=== PATIENT | female | born 2000 | race Caucasian/White ===

== ENCOUNTER 2020-03-22 03:05 | Emergency (ER) | payer SELFPAY ==
[2020-03-22 03:12] VITALS: BP 133/73
[2020-03-22] MEDS ORDERED: IBUPROFEN 600 MG TABLET PO ONE (04:32)
[2020-03-22 05:14] LABS: APPEARANCE,URINE SLIGHTLY-CLOUDY; BILIRUBIN,URINE NEGATIVE (NEGATIVE); COLOR,URINE AMBER; GLUCOSE, URINE NEGATIVE (NEGATIVE); KETONES,URINE NEGATIVE (NEGATIVE); LEUKOCYTE ESTERASE,URINE LARGE (NEGATIVE); NITRITE,URINE NEGATIVE (NEGATIVE); PROTEIN,URINE 100 mg/dL (NEGATIVE); URINE SPECIFIC GRAVITY 1.013
[2020-03-22] MEDS ORDERED: NORMAL SALINE 1000 ML 1,000 ML IV ONE (06:27)
--- NOTE | 2020-03-22 07:56 | ER Document Report ---
Entered by SHIELA CASTILLO SCRIBE 03/22/20 0626 Acting as scribe for:MIRIAN SORENSON MD ED GI/ - General Chief Complaint: Flank Pain Stated Complaint: URINARY PAIN Time Seen by Provider: 03/22/20 06:07 Mode of Arrival: Ambulatory Information source: Patient Notes: This 19 year old female patient with no significant past medical history presents to the ED today with complaints of bilateral flank pain, right worse than left that started x2 days ago. Patient states that she initially had UTI symptoms including urinary frequency x1 week ago and that she took OTC urinary pain relief tablets. She reports associated nausea without emesis, abdominal pain, and chills. Denies history of kidney stones. Denies fever, sore throat, headache, cough, , or COVID concerns. Last menstrual period was on 02/29/2020. Patient states that she is pain-free at this time after receiving 600 mg Motrin PO prior to my evaluation. Past Medical History - General Information source: Patient - Social History Smoking Status: Never Smoker Cigarette use (# per day): No Chew tobacco use (# tins/day): No Smoking Education Provided: No Frequency of alcohol use: Social Drug Abuse: None Lives with: Friend Family History: Reviewed & Not Pertinent Patient has suicidal ideation: No Patient has homicidal ideation: No Review of Systems - Review of Systems Constitutional: See HPI, Chills. denies: Fever EENT: See HPI. denies: Throat pain Cardiovascular: No symptoms reported Respiratory: See HPI. denies: Cough Gastrointestinal: See HPI, Abdominal pain, Nausea. denies: Diarrhea, Vomiting Genitourinary: See HPI, Frequency, Flank pain Female Genitourinary: See HPI, Last menstrual period - 02/29/2020. denies: Musculoskeletal: No symptoms reported Skin: No symptoms reported Hematologic/Lymphatic: No symptoms reported Neurological/Psychological: See HPI. denies: Headaches -: Yes All other systems reviewed and negative Physical Exam - Vital signs Vitals: Temp Pulse Resp BP Pulse Ox 97.7 F 98 16 133/73 H 100 03/22/20 03:10 03/22/20 03:10 03/22/20 03:10 03/22/20 03:10 03/22/20 03:10 Interpretation: Normal - General General appearance: Appears well, Alert In distress: None - HEENT Head: Normocephalic, Atraumatic Eyes: Normal Pupils: PERRL - Respiratory Respiratory status: No respiratory distress Chest status: Nontender Breath sounds: Normal Chest palpation: Normal - Cardiovascular Rhythm: Regular Heart sounds: Normal auscultation, S1 appreciated, S2 appreciated Murmur: No Friction rub: No Gallop: None auscultated - Abdominal Inspection: Normal Distension: No distension Bowel sounds: Normal Tenderness: Nontender - Abdomen soft Organomegaly: No organomegaly - Back Back: CVA tenderness - Bilateral CVA tenderness to percussion, right worse than left - Extremities General upper extremity: Normal inspection General lower extremity: Normal inspection. No: Edema - Neurological Neuro grossly intact: Yes Orientation: AAOx4 [place] Coma Scale Eye Opening: Spontaneous [place] Coma Scale Verbal: Oriented [place] Coma Scale Motor: Obeys Commands Ja Coma Scale Total: 15 - Psychological Associated symptoms: Normal affect, Normal mood - Skin Skin Temperature: Warm Skin Moisture: Dry Skin Color: Normal Course - Re-evaluation Re-evalutation: 03/22/20 07:54 Patient eloped - Vital Signs Vital signs: Temp Pulse Resp BP Pulse Ox 97.7 F 98 16 133/73 H 100 03/22/20 03:10 03/22/20 03:10 03/22/20 03:10 03/22/20 03:10 03/22/20 03:10 - Laboratory Laboratory results interpreted by me: 03/22/20 04:00 Urine Protein 100 H Urine Blood LARGE H Urine Urobilinogen 2.0 H Ur Leukocyte Esterase LARGE H Discharge - Discharge Clinical Impression: Hematuria, Flank pain Disposition: ELOPED I personally performed the services described in the documentation, reviewed and edited the documentation which was dictated to the scribe in my presence, and it accurately records my words and actions.
== END 2020-03-22 07:20 | disposition left against medical advice (07) ==
LOC: ER 03:05
DX: R10.9 Unspecified abdominal pain (principal); R31.9 Hematuria, unspecified; R11.0 Nausea; R68.83 Chills (without fever); R35.0 Frequency of micturition; Z53.20 Procedure and treatment not carried out because of patient's decision for unspecified reasons
CPT/HCPCS: 81001; 81025; 99281